=== PATIENT | male | born 1955 | race Caucasian/White ===

== ENCOUNTER 2020-04-27 11:48 | Outpatient (CLI) | payer OTHER, SELFPAY ==
--- NOTE | 2020-04-28 14:12 | SLEEP_ITS ---
Home sleep test. DATE OF STUDY: 04/27/2020 ORDERING PHYSICIAN: Pato Dutton M.D. REASON FOR THIS STUDY: Hypersomnolence. HISTORY OF PRESENT ILLNESS: This patient is 5 feet 11 inches tall, weighing 205 pounds with a BMI of 28.6. He has snored for many years without treatment. He frequently snores loudly enough that others complain about it. Other members of his family do not have sleep-disordered breathing. He denies difficulty sleeping with a cold, waking up gasping for breath at night, witnessed problems reported to him by others, nighttime sweating, excessive heart beating at night or irregular heartbeats, falling asleep during the day, falling asleep involuntarily or with physical effort, loss of muscle tone with strong emotion, daytime difficulty due to excessive sleepiness, feeling paralyzed on waking or falling asleep or vivid dreamlike scenes upon awakening or falling asleep. He is not afraid to go to sleep. He denies nightmares. He does not recall having dreams. He does not feel sad, depressed, anxious, does not have muscular tension, have parts of his body jerking at night or kicking at night. He does not have crawly achy feelings in his legs or leg pain at night. He denies morning jaw pain and he does not grind his teeth. He occasionally is bothered by pain during the day. He is not bothered by pain at night. He occasionally wakes up feeling stiff in the morning with sore achy muscles. Normal bedtime is 9 p.m., falling asleep and 15 minutes waking twice at night. Briefly to go to the bathroom. He wakes up at 5 in the morning. He does not take naps. MEDICAL COMORBIDITIES: Diabetes, hyperlipidemia, BPH, hypertension. MEDICATIONS: 1. Finasteride 5 mg daily. 2. Metformin 500 mg 4 tablets daily. 3. Invokana 300 mg daily. 4. Glipizide 10 mg daily. 5. Pravastatin 40 mg daily. HABITS: Tobacco 1 pack per day, quit 30 years ago. No caffeine or alcohol. DESCRIPTION OF THE STUDY: [place] Sleepiness Scale, the score is 2, which is normal. This was conducted as a portable not unattended type 3 home sleep test using 4 channel monitoring including snoring channel, respiratory effort channel, oxygen saturation channel, and heart rate channel. The study was scored using CMS guidelines. Duration of the study 8 hours 41 minutes. The apnea-hypopnea index is 8.2. This is above normal. The respiratory disturbance index is 10.8. Oxygen desaturation index 7.4. Lowest desaturation 89%. He had 8 apneas. 7 apneas or 88% were obstructive, 1 apnea or 12% central, 63 hypopneas, 2597 flow limited breaths without snoring, 830 snoring events and 65 desaturations with no time spent below 88%. Lowest desaturation 89%. Heart rate was 54-103. IMPRESSION: At least mild obstructive sleep apnea syndrome G47.33 with an AHI of 8.2. Minimum saturation of 89%, frequent snoring. The patient has medical comorbidities including diabetes, hypertension, BPH, dyslipidemia, osteoarthritis. Recommend APAP of 5-15 with close followup. The patient should not drive if he has daytime sleepiness. Close followup is recommended. YAZMIN MILLAN M.D. ALKYLATION OPERATOR ALKYLATION OPERATOR D I MT: Marline KAT
== END 2020-04-27 11:49 | disposition home or self-care (01) ==
LOC: ANHCSM 11:49
PROVIDERS: PCP Family Medicine; Visit Provider Family Medicine
DX: R40.0 Somnolence (principal); G47.33 Obstructive sleep apnea (adult) (pediatric)
CPT/HCPCS: 95806

== ENCOUNTER 2023-11-13 00:57 | Day surgery (SDC) | payer OTHER, SELFPAY ==
[2023-10-21 08:35] VITALS: BMI 28.5
--- NOTE | 2023-11-11 10:15 | SUR.PREOP ---
Patient called regarding upcoming procedure. Reviewed preop instructions, appointment times, and procedure prep.
[2023-11-13 06:18] VITALS: BP 125/58; PULSE 70; RESP 18; TEMP 36.3; O2SAT 97
[2023-11-13] MEDS: LACTATED RINGERS 1,000 ML 150 ML IV CONT (06:32)
[2023-11-13 06:34] LABS: Glucose Point of Care 189 mg/dl (65-105)
--- NOTE | 2023-11-13 07:17 | PM.HPGS ---
History of Present Illness History of Present Illness Consent: Risks, benefits, and alternatives have been discussed and questions answered. Patient agrees to proceed with procedure. Chief complaint: hx colon polyps Narrative: Storm Smith is a 68 year old male with last colonoscopy 5 years ago, history of polyps Review of Systems Constitutional: Constitutional: Denies headache(s) and Denies weakness Eyes: Eyes: Denies blurry vision ENT: Reports Normal hearing present, Denies headache(s) and Denies neck pain Cardiovascular: Cardiovascular: Denies chest pain and Denies dyspnea Respiratory: Respiratory: Denies dyspnea Gastrointestinal: Gastrointestinal: Reports no additional gastrointestinal complaints Genitourinary: Genitourinary: Denies dysuria Musculoskeletal: Musculoskeletal: Denies neck pain Integumentary/Breasts: Skin/Breast: Denies dry skin Neurologic: Reports Normal hearing present, Denies headache(s) and Denies weakness Psychiatric: Psychiatric: Denies anxiety Endocrine: Endocrine: Denies change in body appearance Hematologic/Lymphatic: Hematologic/Lymphatic: Denies easy bleeding Allergic/Immunologic: Allergic/Immunologic: Denies urticaria PMFSH Past Medical History Medical History BPH w/o urinary obs/LUTS Dyslipidemia Essential (primary) hypertension [place]ENCE (obstructive sleep apnea) Osteoarthritis Type 2 diabetes mellitus without complication, without long-term current use of insulin Surgical History Surgical History H/O rotator cuff surgery (~07/04/22) left History of bilateral knee replacement (~2016) 2017 History of carpal tunnel surgery of right wrist (~2018) 2019 History of lumbosacral spine surgery (~1995) 1995 Family History Family History Other Diabetes mellitus Hypertension Social History Social History Smoking packs per day: 1 Smoking cigarettes per day: 20.0 Years smoked: 40 Smoking pack-years: 40.00 Smoking status: Current every day smoker Tobacco type: cigarettes Second hand tobacco smoke exposure: No Alcohol intake: never Substance use: never Substance use type: does not use Lack of Transportation: No Lack of Food: Never True Current Housing: I Have Housing Concerned About Future Housing: No Difficulty Paying Gas/Electric Bills: No Difficulty Paying for Meds: No Currently Unemployed: No Education: High School Diploma/GED Living arrangements: with family Additional living arrangements comments: Spouse Occupation/Education: occupation Gender identity (if verbalized by the patient): Male Sexual Orientation (if Verbalized by the Patient): Straight or Heterosexual Spiritual care concerns: No Meds Home Medications and Allergies Home Medications Medication Instructions Recorded Confirmed Type finasteride 5 mg tablet 5 mg PO DAILY 12/07/19 10/21/23 History cholecalciferol (vitamin D3) 1,250 1,250 mcg PO WEEKLY #12 tabs 09/12/22 10/21/23 Rx mcg (50,000 unit) tablet metformin 500 mg tablet,extended 2,000 mg PO DAILY #360 tabs 07/16/23 10/21/23 Rx release 24 hr glipizide 10 mg tablet, extended 10 mg PO BID #180 tabs 08/20/23 10/21/23 Rx release 24 hr dapagliflozin propanediol 10 mg 10 mg PO DAILY #90 tabs 10/10/23 10/21/23 Rx tablet (Farxiga) lisinopril 20 mg tablet 20 mg PO DAILY #90 tabs 10/10/23 10/21/23 Rx pravastatin 40 mg tablet 40 mg PO QHS #90 tabs 10/27/23 Rx Allergies Allergy/AdvReac Type Severity Reaction Status Date / Time No Known Allergies Allergy Verified 11/13/23 06:17 Vital Signs Vital Signs - 24 hr 11/13/23 06:18 Temperature 97.4 F L Pulse Rate 70 Respiratory Rate 18 Blood Pressure 125/58 L Pulse Oximetry 97 Oxygen Delivery Room Air
--- NOTE | 2023-11-13 07:20 | WPDANESEPPF ---
Anes - Initial Pre Proc Eval Procedure: Operation Date: 11/13/23 07:30 Proposed Procedures p Colonoscopy - Marty Montiel MD Date/Time: 11/13/23 07:20 Surgeon: Marty Montiel MD Pre Op Diagnosis: hx colon polyps Patient Data Age: 68 Gender: M Height: 1.8 m Weight: 92 kg Last Vital Signs Temp 97.4 F L 11/13/23 06:18 Pulse 70 11/13/23 06:18 Resp 18 11/13/23 06:18 BP 125/58 L 11/13/23 06:18 Pulse Ox 97 11/13/23 06:18 O2 Del Method Room Air 11/13/23 06:18 Allergies Allergy/AdvReac Type Severity Reaction Status Date / Time No Known Allergies Allergy Verified 11/13/23 06:17 Home Medications Medication Instructions Recorded Confirmed Type finasteride 5 mg tablet 5 mg PO DAILY 12/07/19 10/21/23 History cholecalciferol (vitamin D3) 1,250 1,250 mcg PO WEEKLY #12 tabs 09/12/22 10/21/23 Rx mcg (50,000 unit) tablet metformin 500 mg tablet,extended 2,000 mg PO DAILY #360 tabs 07/16/23 10/21/23 Rx release 24 hr glipizide 10 mg tablet, extended 10 mg PO BID #180 tabs 08/20/23 10/21/23 Rx release 24 hr dapagliflozin propanediol 10 mg 10 mg PO DAILY #90 tabs 10/10/23 10/21/23 Rx tablet (Farxiga) lisinopril 20 mg tablet 20 mg PO DAILY #90 tabs 10/10/23 10/21/23 Rx pravastatin 40 mg tablet 40 mg PO QHS #90 tabs 10/27/23 Rx Laboratory Tests 11/13/23 06:29 POC Capillary Glucose 189 H mg/dl (65-105) Patient hx anesthesia problems: none Family hx anesthesia problems: none Results Review: All pre-operative results and documents have been reviewed as part of the pre-operative evaluation. [facility] Past Medical History Medical History BPH w/o urinary obs/LUTS Dyslipidemia Essential (primary) hypertension [place] (obstructive sleep apnea) Osteoarthritis Type 2 diabetes mellitus without complication, without long-term current use of insulin Surgical History Surgical History H/O rotator cuff surgery (~07/04/22) left History of bilateral knee replacement (~2016) 2017 History of carpal tunnel surgery of right wrist (~2018) 2019 History of lumbosacral spine surgery (~1995) 1995 Family History Family History Other Diabetes mellitus Hypertension Social History Social History Smoking packs per day: 1 Smoking cigarettes per day: 20.0 Years smoked: 40 Smoking pack-years: 40.00 Smoking status: Current every day smoker Tobacco type: cigarettes Second hand tobacco smoke exposure: No Alcohol intake: never Substance use: never Substance use type: does not use Lack of Transportation: No Lack of Food: Never True Current Housing: I Have Housing Concerned About Future Housing: No Difficulty Paying Gas/Electric Bills: No Difficulty Paying for Meds: No Currently Unemployed: No Education: High School Diploma/GED Living arrangements: with family Additional living arrangements comments: Spouse Occupation/Education: occupation Gender identity (if verbalized by the patient): Male Sexual Orientation (if Verbalized by the Patient): Straight or Heterosexual Spiritual care concerns: No Anes - Eval Final PreProcedure Day of Procedure 11/13/23 07:20 Patient weight: normal Heart: regular rate and rhythm Lungs: clear to auscultation Airway: Mallampati scale class II Neurological: alert and oriented Last oral intake: >/= 8 hours ASA classification: III Emergent: no Anesthetic plan: proceed Anesthesia type and monitoring: general GIVS and standard monitoring Results Review: All pre-operative results and documents have been reviewed as part of the pre-operative evaluation. Informed Consent: The patient's anesthetic plan and its attendant risks and benefits were discussed
[2023-11-13 07:44] VITALS: BP 85/56; PULSE 77; RESP 22; O2SAT 97
[2023-11-13 07:54] VITALS: BP 120/53; PULSE 71; RESP 24; O2SAT 98
[2023-11-13 08:04] VITALS: BP 116/51; PULSE 63; RESP 19; O2SAT 99
== END 2023-11-13 08:08 | disposition home or self-care (01) ==
PROVIDERS: PCP Family Medicine; Visit Provider Internal Medicine Gastroenterology
PROC: 0DJD8ZZ Inspection of Lower Intestinal Tract, Via Natural or Artificial Opening Endoscopic (ICD-10-PCS; CPT 45378; principal; 2023-11-13 07:30)
DX: Z12.11 Encounter for screening for malignant neoplasm of colon (principal); K57.30 Diverticulosis of large intestine without perforation or abscess without bleeding; K64.8 Other hemorrhoids; Z86.010 Personal history of colon polyps; I10 Essential (primary) hypertension; E11.9 Type 2 diabetes mellitus without complications; E78.5 Hyperlipidemia, unspecified; G47.33 Obstructive sleep apnea (adult) (pediatric); N40.0 Benign prostatic hyperplasia without lower urinary tract symptoms; F17.210 Nicotine dependence, cigarettes, uncomplicated; Z79.84 Long term (current) use of oral hypoglycemic drugs
CPT/HCPCS: 45378; 82948; J2001; J2704; J7120